=== PATIENT | male | born 1960 ===

== ENCOUNTER 2020-07-14 11:39 | Emergency (ER) | payer OTHER ==
[~2020-07-14] VITALS: Ht 188 cm; Wt 134.9 kg
[~2020-07-14 11:39] MED LIST: CEPH-376 PO; CHOL100012 PO; ECHI400C12 PO; ELDE118L PO; HYDR25TA6 PO; LORA0.5T PO; METF850T10 PO; POTA10TA12 PO; RANI150T60 PO
[2020-07-14 11:45] VITALS: BP 154/79
[2020-07-14] MEDS ORDERED: LIDOCAINE-MPF 1%, 5ML INFIL ONE (12:30)
--- NOTE | 2020-07-14 12:51 | NUR ---
PHOTO CARTOGRAPHER: PT TO ROOM FROM LOBBY
--- NOTE | 2020-07-14 12:52 | NUR ---
Pt ambulatory with steady gait from room to restroom
[2020-07-14] MEDS ORDERED: LIDOCAINE-MPF 1%, 2ML ONE (12:58)
[2020-07-14] MEDS ORDERED: LIDOCAINE-MPF 1%, 5ML ONE (13:00)
--- NOTE | 2020-07-14 13:53 | NUR ---
BREAK RN: NIECY BATISTA AT BEDSIDE TO SILVIA ZURITA
--- NOTE | 2020-07-14 14:19 | NUR ---
BREAK RN: REPORT TO SEVERO AMBROSE
== END 2020-07-14 14:32 | disposition home or self-care (01) ==
LOC: ED 14:06
DX: L02.512 Cutaneous abscess of left hand (principal); F17.210 Nicotine dependence, cigarettes, uncomplicated
CPT/HCPCS: 99283